=== PATIENT | male | born 1995 | race African-American/Black ===

== ENCOUNTER 2023-12-04 15:53 | Emergency (ER) | payer BC ==
[~2023-12-04] VITALS: Ht 195.6 cm; Wt 124.7 kg
[2023-12-04] MEDS ORDERED: POLY17PO4 PO (18:02)
[2023-12-04] MEDS ORDERED: NA P133E8 RC (18:02)
[2023-12-04] MEDS ORDERED: FLEET ENEMA 133 ML BOTTLE RC ONE (18:02)
[2023-12-04] MEDS: MINERAL OIL FLEET ENEMA 133 ML BOTTLE RC ONE (18:11)
[2023-12-04 19:30] VITALS: BP 120/82; O2SAT 99
== END 2023-12-04 19:30 | disposition home or self-care (01) ==
LOC: ER 15:58
DX: K59.00 Constipation, unspecified (principal)
CPT/HCPCS: A4606; A4663